=== PATIENT | female | born 1995 | race Caucasian/White ===

== ENCOUNTER 2019-04-10 09:05 | Day surgery (SDC) | payer MEDICAID, OTHER ==
[2019-04-10] MEDS ORDERED: hydrALAZINE 20 MG/ML VIAL SLOW IVP PRN (09:59)
[2019-04-10 10:05] VITALS: BP 107/50; TEMP 98.9
[2019-04-10 10:06] VITALS: BMI 42.5
[2019-04-10] MEDS ORDERED: FLU VACC QS2019-20(6MOS UP)/PF 60 MCG/0.5 ML SYRINGE IM ONE (10:15)
--- NOTE | 2019-04-10 10:57 | ER ---
DATE OF SERVICE: 04/10/2019 TIME OF SERVICE: 1015 hours. PRESENTING COMPLAINT: Decreased movement at 22 weeks gestation. HISTORY OF PRESENT ILLNESS: Ms. Lopez is a 23-year-old, 3, para 2, with MONIE of 08/10/2019. She presents with decreased movement for one day. She denies rupture of membranes or vaginal bleeding. She reports she had a normal ultrasound at Dr. Zaldivar's office approximately one week ago. [employer]CH[employer]ICIAN HISTORY: x2. Blood type B positive. Antibody negative. Pap negative. Rubella immune. VDRL nonreactive. Hepatitis B, GC, Chlamydia negative. PAST MEDICAL HISTORY: Denies. PAST SURGICAL HISTORY: . ALLERGIES: DENIES. MEDICATIONS: vitamins. SOCIAL HISTORY: Denies tobacco, alcohol, or IV drug use. FAMILY HISTORY: Noncontributory. REVIEW OF SYSTEMS: Noncontributory. PHYSICAL EXAMINATION: GENERAL: White female, resting comfortably. VITAL SIGNS: Blood pressure 109/62, pulse 83, respirations 18, temperature 99. HEENT: Within normal limits. LUNGS: Clear to auscultation bilaterally. HEART: Regular rate and rhythm. ABDOMEN: Soft and nontender. Fundal height of 23 cm. FHTs on Doppler are 150s without decelerations. PELVIC: Deferred. EXTREMITIES: No clubbing, cyanosis, or edema. IMPRESSION: Normal heart tones at an early second trimester with decreased movement. No evidence of abnormality. PLAN: Discharge home. The patient is to keep scheduled followup with Dr. Zaldivar. Recommended followup with him for repeat ultrasound for SHEILA if decreased movement re-presents. Job ID: [id number]
== END 2019-04-10 10:20 | disposition home or self-care (01) ==
LOC: L&D/OP 09:05
PROVIDERS: ATTEND Obstetrics & Gynecology
DX: O36.8120 Decreased fetal movements, second trimester, not applicable or unspecified (principal); Z3A.22 22 weeks gestation of pregnancy; Z88.5 Allergy status to narcotic agent
CPT/HCPCS: 99282